=== PATIENT | female | born 1950 | race Caucasian/White ===

== ENCOUNTER 2016-09-26 05:18 | Inpatient (IN) | payer OTHER ==
[2016-09-26] VITALS (7 sets, daily range): BP systolic 121–156; BP diastolic 56–93
[~2016-09-26] VITALS: Ht 162.6 cm; Wt 122.0 kg
[~2016-09-26 05:18] MED LIST: AMBIEN10 MG PO; FLEXERIL5 MG PO; HYZAAR 100-21 TABLET PO; INVOKANA300 MG PO; KLOR-CON M2020 MEQ PO; METOPROLOL SUCC50 MG PO; MOBIC7.5 MG PO; NASONEX17 GM BOTH NARES; NEXIUM40 MG PO; NOVOLOG PE100 UNITS/ SC; TOPROL XL50 MG PO; TRESIBA FL100 UNIT/1 SC; VICODIN 5-3001 EACH PO; VICTOZA 2-0.6 MG/0.1 SC
[2016-09-26 06:13] LABS: POINT-OF-CARE METER ID UU14174212
[2016-09-26 09:29] LABS: POINT-OF-CARE METER ID UU13113675
[2016-09-26 12:37] LABS: POINT-OF-CARE METER ID UU13113712
[2016-09-26 16:37] LABS: POINT-OF-CARE METER ID UU13113712
[2016-09-26 22:27] LABS: POINT-OF-CARE METER ID UU13113712
[2016-09-27 00:24] VITALS: BP 127/55
[2016-09-27 03:53] VITALS: BP 107/54
[2016-09-27 05:56] LABS: ANION GAP 5 MEQ/L (2-14); CHLORIDE 102 MEQ/L (99-109); GFR ESTIMATE (CALCULATED) 48 mL/min/; GLUCOSE 201 mg/dL (70-99); POTASSIUM 4.5 MEQ/L (3.7-5.4); SAMPLE HEMOLYSIS CHECK 0; SAMPLE ICTERIC CHECK 0; SAMPLE LIPEMIA CHECK 0; SODIUM 136 MEQ/L (136-147); UREA NITROGEN (BUN) 28 mg/dL (9-23)
[2016-09-27 07:51] VITALS: BP 123/59
[2016-09-27 10:27] LABS: HEMATOCRIT 32.9 % (36.0-46.0); MCV 92.4 FL (83-99)
[2016-09-27 11:44] LABS: POINT-OF-CARE METER ID UU13113712
[2016-09-27 12:22] VITALS: BP 123/58
[2016-09-27 15:37] VITALS: BP 133/63
[2016-09-27 16:10] LABS: POINT-OF-CARE METER ID UU13113712
[2016-09-27 19:58] VITALS: BP 122/60
[2016-09-27 22:14] LABS: POINT-OF-CARE METER ID UU13113712
[2016-09-28 00:05] VITALS: BP 129/63
[2016-09-28 04:05] VITALS: BP 122/56
[2016-09-28 05:22] LABS: HEMATOCRIT 33.6 % (36.0-46.0); MCV 92.8 FL (83-99)
[2016-09-28 08:00] VITALS: BP 139/63
[2016-09-28 08:00] LABS: POINT-OF-CARE METER ID UU13113712
[2016-09-28] MEDS ORDERED: BENADRYL25 MG PO (09:20)
[2016-09-28] MEDS ORDERED: TYLENOL REGULA325 MG PO (09:22)
[2016-09-28] MEDS ORDERED: SENNA PLUS TAB1 EACH PO (09:22)
[2016-09-28] MEDS ORDERED: XARELTO10 MG PO (09:23)
[2016-09-28] MEDS ORDERED: CYCLOBENZAPRINE5 MG PO (09:23)
[2016-09-28] MEDS ORDERED: OXYCODONE HCL5 MG PO (09:23)
[2016-09-28] MEDS ORDERED: CELECOXIB200 MG PO (09:23)
[2016-09-28 11:33] LABS: POINT-OF-CARE METER ID UU13113712
[2016-09-28 12:00] VITALS: BP 118/69
[2016-09-28 15:08] VITALS: BP 148/63
== END 2016-09-28 15:58 | DRG 470 ==
LOC: 2SOUTH 05:18 → 3WEST 10:10 → 2SOUTH 11:08 → 3WEST 09-28 15:58
PROVIDERS: Orthopaedic Surgery
PROC: 0SRC0J9 Replacement of Right Knee Joint with Synthetic Substitute, Cemented, Open Approach (ICD-10-PCS; principal; 2016-09-26)
DX: M17.11 Unilateral primary osteoarthritis, right knee (principal); I10 Essential (primary) hypertension; E11.9 Type 2 diabetes mellitus without complications; Z86.718 Personal history of other venous thrombosis and embolism; Z85.038 Personal history of other malignant neoplasm of large intestine; Z98.1 Arthrodesis status
CPT/HCPCS: 80048; 82948; 85014; 85018; C1713; J0131; J0690; J1100; J1815; J1885; J2175; J2250; J2405; J2795; J3010; J7030; J7050; J7120; L1820

== ENCOUNTER 2017-06-05 22:03 | Inpatient (IN) | payer OTHER ==
[~2017-06-05] VITALS: Ht 154.9 cm; Wt 56.5 kg
[~2017-06-05 22:03] MED LIST changes: +AMOX TR-K CLV1 EAC4 PO; +BENADRYL25 MG PO; +CELECOXIB200 MG PO; +CYCLOBENZAPRINE5 MG PO; +DITROPAN XL15 MG PO; +FLONASE16 G1 BOTH NARES; +IRON325 M1 PO; +LASIX20 MG PO; +LORCET 5-325 M1 EACH PO; +MAGNESIUM250 MG PO; +OXYCODONE HCL5 MG PO; +SENNA PLUS TAB1 EACH PO; +TYLENOL REGULA325 MG PO; +VITAMIN B-12250 MCG PO; +VITAMIN K240 MCG PO; +XARELTO10 MG PO
[2017-06-06 06:41] VITALS: BP 148/66
[2017-06-06 15:09] VITALS: BP 132/63
[2017-06-06 20:13] VITALS: BP 100/56
[2017-06-06] MEDS ORDERED: VITAMIN K240 MCG PO (22:37)
[2017-06-07 00:21] VITALS: BP 125/61
[2017-06-07 03:25] VITALS: BP 122/58
[2017-06-07 06:03] LABS: HEMOGLOBIN 12.4 G/DL (11.9-15.5); MCV 93.3 FL (83-99)
[2017-06-07 06:18] LABS: CHLORIDE 103 MEQ/L (99-109); POTASSIUM 3.8 MEQ/L (3.7-5.4); SODIUM 138 MEQ/L (136-147)
[2017-06-07 06:24] LABS: GFR ESTIMATE (CALCULATED) 59 mL/min/; GLUCOSE 151 mg/dL (70-99); UREA NITROGEN (BUN) 21 mg/dL (9-23)
[2017-06-07 08:18] VITALS: BP 133/63
[2017-06-07 11:33] VITALS: BP 121/54
[2017-06-07 15:55] VITALS: BP 104/62; BP 1074/62
[2017-06-08 05:18] LABS: HEMATOCRIT 33.8 % (36.0-46.0); HEMOGLOBIN 11.5 G/DL (11.9-15.5); MCV 94.2 FL (83-99)
[2017-06-08 07:47] VITALS: BP 105/53
[2017-06-08] MEDS ORDERED: BENADRYL25 MG PO (09:14)
[2017-06-08] MEDS ORDERED: BISACODYL5 MG PO (09:17)
[2017-06-08] MEDS ORDERED: TYLENOL REGULA325 MG PO (09:17)
[2017-06-08] MEDS ORDERED: OXYCODONE HCL5 MG PO (09:18)
[2017-06-08] MEDS ORDERED: CELECOXIB200 MG PO (09:18)
[2017-06-08] MEDS ORDERED: ELIQUIS2.5 MG PO (09:18)
[2017-06-08 15:09] VITALS: BP 109/57
[2017-06-08 22:54] VITALS: BP 126/61
[2017-06-09 00:11] VITALS: BP 129/60
[2017-06-09 07:51] VITALS: BP 110/56
[2017-06-09 15:10] VITALS: BP 111/56
[2017-06-10 00:06] VITALS: BP 103/57
[2017-06-10 07:58] VITALS: BP 129/59
[2017-06-10 15:25] VITALS: BP 122/59
[2017-06-10 23:36] VITALS: BP 119/57
[2017-06-11 07:53] VITALS: BP 114/61; BP 119/68
[2017-06-11 15:59] VITALS: BP 115/68
[2017-06-11 23:21] VITALS: BP 103/57
[2017-06-12 07:36] VITALS: BP 104/61
[2017-06-12 15:29] VITALS: BP 110/59
[2017-06-12 23:46] VITALS: BP 109/56
[2017-06-13 07:31] VITALS: BP 124/61
[2017-06-13 16:08] VITALS: BP 102/51
== END 2017-06-13 16:42 | DRG 470 ==
LOC: 2SOUTH → ENRESERV 22:03 → 2SOUTH 06-06 05:38 → 3EAST 06-06 05:38 → 2SOUTH 06-06 08:22 → EDSTATUS 06-06 11:37 → 2SOUTH 06-06 11:39 → ENRESERV 06-06 12:44 → 2SOUTH 06-06 13:00 → 3EAST 06-06 14:26 → SDC 06-06 14:31 → 2SOUTH 06-06 14:39 → 3EAST 06-13 16:42
PROVIDERS: Orthopaedic Surgery
PROC: 0SRD0J9 Replacement of Left Knee Joint with Synthetic Substitute, Cemented, Open Approach (ICD-10-PCS; principal; 2017-06-06)
PROC: 3E0T3BZ Introduction of Anesthetic Agent into Peripheral Nerves and Plexi, Percutaneous Approach (ICD-10-PCS; 2017-06-06)
DX: M17.12 Unilateral primary osteoarthritis, left knee (principal); I10 Essential (primary) hypertension; E11.9 Type 2 diabetes mellitus without complications; E66.9 Obesity, unspecified; Z96.651 Presence of right artificial knee joint; Z79.4 Long term (current) use of insulin; Z98.1 Arthrodesis status; Z88.1 Allergy status to other antibiotic agents; Z93.3 Colostomy status; Z85.038 Personal history of other malignant neoplasm of large intestine; Z86.718 Personal history of other venous thrombosis and embolism; Z68.43 Body mass index [BMI] 50.0-59.9, adult; Z75.1 Person awaiting admission to adequate facility elsewhere
CPT/HCPCS: 36415; 71045; 80048; 82565; 82948; 84439; 84443; 84481; 84520; 85014; 85018; 94799; 97530 GO; 97530 GP; C1713; J0131; J0690; J1170; J1815; J1885; J2250; J2405; J3010; J7030; Q0175

== ENCOUNTER 2017-06-28 19:22 | Inpatient (IN) | payer OTHER ==
[~2017-06-28] VITALS: Ht 160 cm; Wt 119.9 kg
[~2017-06-28 19:22] MED LIST changes: +BISACODYL5 MG PO; +ELIQUIS2.5 MG PO
[2017-06-28 20:13] LABS: HEMATOCRIT 29.5 % (36.0-46.0); HEMOGLOBIN 10.2 G/DL (11.9-15.5); MCH 31.9 PG (29.0-34.0); MCHC 34.6 G/DL (30.0-36.0); MCV 92.2 FL (83-99); PLATELET COUNT 293 K/uL (156-360); RBC DIS.WIDTH-CV 12.6 % (11.8-14.6); RBC DIS.WIDTH-SD 42.7 % (39-53); WHITE BLOOD COUNT 6.5 K/uL (4.1-10.2)
[2017-06-28 20:28] LABS: CHLORIDE 85 mEq/L (99-109); POTASSIUM 5.8 mEq/L (3.7-5.4)
[2017-06-28 20:30] LABS: GLUCOSE 139 mg/dL (70-99); TOTAL PROTEIN 6.9 g/dL (6.4-8.3)
[2017-06-28 20:32] LABS: TOTAL BILIRUBIN 0.8 mg/dL (0.0-1.0)
[2017-06-28 20:34] LABS: ALKALINE PHOSPHATASE 130 IU/L (3-129); CREATININE 1.8 mg/dL (0.6-1.3); GFR ESTIMATE (CALCULATED) 30 mL/min/
[2017-06-28 20:35] LABS: UREA NITROGEN (BUN) 34 mg/dL (9-23)
[2017-06-28 20:36] LABS: AST (GOT) 15 IU/L (2-34)
[2017-06-28 20:37] LABS: ALT (GPT) 10 IU/L (3-49); SODIUM 119 mEq/L (136-147)
[2017-06-28 20:49] LABS: APPEARANCE CLEAR ((CLEAR)); BILIRUBIN NEGATIVE; BLOOD NEGATIVE; COLOR YELLOW ((YELLOW)); GLUCOSE (STRIP) NEGATIVE; KETONES NEGATIVE; LEUKOCYTES NEGATIVE; NITRITE NEGATIVE; PROTEIN (STRIP) NEGATIVE; SPECIFIC GRAVITY 1.009 (1.000-1.030); UROBILINOGEN 0.2 MG/DL (0.2-1.0)
[2017-06-28] MEDS ORDERED: VITAMIN B-12250 MCG PO (21:08)
[2017-06-28] MEDS ORDERED: LASIX20 MG PO (21:09)
[2017-06-28] MEDS ORDERED: IRON325 M1 PO (21:09)
[2017-06-28] MEDS ORDERED: HYZAAR 100-21 TABLET PO (21:09)
[2017-06-28] MEDS ORDERED: VICTOZA 2-0.6 MG/0.1 SC (21:11)
[2017-06-28] MEDS ORDERED: MAGNESIUM250 MG PO (21:11)
[2017-06-28] MEDS ORDERED: TRESIBA FL100 UNIT/1 SC (21:12)
[2017-06-28] MEDS ORDERED: TOPROL XL50 MG PO (21:12)
[2017-06-28] MEDS ORDERED: DITROPAN XL15 MG PO (21:12)
[2017-06-28] MEDS ORDERED: AMBIEN10 MG PO (21:13)
[2017-06-28] MEDS ORDERED: ELIQUIS2.5 MG PO (21:13)
[2017-06-28] MEDS ORDERED: NOVOLOG PE100 UNITS/ SC (21:14)
[2017-06-28] MEDS ORDERED: KEFLEX500 MG PO (21:18)
[2017-06-28] MEDS ORDERED: TYLENOL REGULA325 MG PO (21:19)
[2017-06-28] MEDS ORDERED: BENADRYL ALLERG25 MG PO (21:20)
[2017-06-28] MEDS ORDERED: COOL THERAPY118 ML TP (21:21)
[2017-06-28] MEDS ORDERED: FLEXERIL5 MG PO (21:22)
[2017-06-28] MEDS ORDERED: LAXATIVE5 M1 PO (21:22)
[2017-06-28] MEDS ORDERED: DULCOLAX10 MG PR (21:25)
[2017-06-28] MEDS ORDERED: FLONASE16 G1 BOTH NARES (21:26)
[2017-06-28] MEDS ORDERED: MILK OF MAGN PO (21:26)
[2017-06-28] MEDS ORDERED: MIRALAX17 GM PO (21:27)
[2017-06-28] MEDS ORDERED: ROXICODONE5 MG PO (21:28)
[2017-06-28 23:04] VITALS: BP 133/60
[2017-06-29] VITALS (7 sets, daily range): BP systolic 99–132; BP diastolic 53–67
[2017-06-29 06:51] LABS: HEMATOCRIT 27.3 % (36.0-46.0); HEMOGLOBIN 9.2 G/DL (11.9-15.5); MCH 31.5 PG (29.0-34.0); MCHC 33.7 G/DL (30.0-36.0); MCV 93.5 FL (83-99); PLATELET COUNT 281 K/uL (156-360); RBC DIS.WIDTH-CV 12.6 % (11.8-14.6); RBC DIS.WIDTH-SD 43.2 % (39-53); RED BLOOD COUNT 2.92 M/uL (3.80-5.20); WHITE BLOOD COUNT 6.5 K/uL (4.1-10.2)
[2017-06-29 07:16] LABS: CHLORIDE 87 MEQ/L (99-109); CREATININE 1.7 MG/DL (0.6-1.3); GFR ESTIMATE (CALCULATED) 32 mL/min/; SODIUM 123 MEQ/L (136-147); UREA NITROGEN (BUN) 28 mg/dL (9-23)
[2017-06-29 07:17] LABS: GLUCOSE 92 mg/dL (70-99); POTASSIUM 4.5 MEQ/L (3.7-5.4)
[2017-06-29 16:31] LABS: CHLORIDE 88 MEQ/L (99-109); CREATININE 1.5 MG/DL (0.6-1.3); GFR ESTIMATE (CALCULATED) 37 mL/min/; GLUCOSE 100 mg/dL (70-99); POTASSIUM 4.5 MEQ/L (3.7-5.4); SODIUM 122 MEQ/L (136-147); UREA NITROGEN (BUN) 27 mg/dL (9-23)
[2017-06-29 17:47] LABS: URIC ACID 7.5 mg/dL (3.1-9.2)
[2017-06-29 21:11] LABS: CHLORIDE 89 MEQ/L (99-109); POTASSIUM 4.7 MEQ/L (3.7-5.4); SODIUM 122 MEQ/L (136-147)
[2017-06-29 21:30] LABS: CREATININE 1.3 MG/DL (0.6-1.3); GFR ESTIMATE (CALCULATED) 44 mL/min/; UREA NITROGEN (BUN) 25 mg/dL (9-23)
[2017-06-29 21:31] LABS: GLUCOSE 179 mg/dL (70-99)
[2017-06-30 01:07] LABS: TROP-I INTERPRETATION NEGATIVE; TROPONIN-I 0.01 ng/mL (0.0-0.30)
[2017-06-30 04:08] VITALS: BP 131/60
[2017-06-30 06:51] LABS: CHLORIDE 90 MEQ/L (99-109); CREATININE 1.3 MG/DL (0.6-1.3); GFR ESTIMATE (CALCULATED) 44 mL/min/; GLUCOSE 125 mg/dL (70-99); POTASSIUM 4.6 MEQ/L (3.7-5.4); SODIUM 126 MEQ/L (136-147); UREA NITROGEN (BUN) 23 mg/dL (9-23)
[2017-06-30 06:56] LABS: TROP-I INTERPRETATION NEGATIVE; TROPONIN-I < 0.01 ng/mL (0.0-0.30)
[2017-06-30 08:10] VITALS: BP 129/54
[2017-06-30 12:59] LABS: TROP-I INTERPRETATION NEGATIVE; TROPONIN-I 0.01 ng/mL (0.0-0.30)
[2017-06-30 15:25] VITALS: BP 111/56
[2017-06-30 16:14] LABS: CHLORIDE 93 mEq/L (99-109); POTASSIUM 4.7 mEq/L (3.7-5.4); SODIUM 128 mEq/L (136-147)
[2017-06-30 16:16] LABS: GLUCOSE 163 mg/dL (70-99)
[2017-06-30 16:19] LABS: CREATININE 1.2 mg/dL (0.6-1.3); GFR ESTIMATE (CALCULATED) 48 mL/min/
[2017-06-30 16:23] LABS: UREA NITROGEN (BUN) 25 mg/dL (9-23)
[2017-06-30 23:23] VITALS: BP 111/60
[2017-07-01 07:31] LABS: CHLORIDE 92 MEQ/L (99-109); GFR ESTIMATE (CALCULATED) 59 mL/min/; GLUCOSE 143 mg/dL (70-99); POTASSIUM 4.2 MEQ/L (3.7-5.4); SODIUM 130 MEQ/L (136-147); UREA NITROGEN (BUN) 16 mg/dL (9-23)
[2017-07-01 08:00] VITALS: BP 141/63
[2017-07-01] MEDS ORDERED: SODIUM CHLORIDE1 G1 PO (13:23)
[2017-07-01] MEDS ORDERED: PERCOCET 5/31 TABLET PO (16:46)
== END 2017-07-01 16:57 | disposition home health service (06) | DRG 683 ==
LOC: EME 19:22 → EDOF 21:28 → 2EASTP 21:28 → ENRESERV 21:33 → 2EASTP 22:31
PROVIDERS: Emergency Medicine; Hospitalist; Internal Medicine Nephrology
DX: N17.9 Acute kidney failure, unspecified (principal); E86.1 Hypovolemia; E87.1 Hypo-osmolality and hyponatremia; T50.2X5A Adverse effect of carbonic-anhydrase inhibitors, benzothiadiazides and other diuretics, initial encounter; T50.1X5A Adverse effect of loop [high-ceiling] diuretics, initial encounter; E86.0 Dehydration; E87.5 Hyperkalemia; E87.8 Other disorders of electrolyte and fluid balance, not elsewhere classified; Z68.42 Body mass index [BMI] 45.0-49.9, adult; E66.01 Morbid (severe) obesity due to excess calories; I10 Essential (primary) hypertension; E11.9 Type 2 diabetes mellitus without complications; K21.0 Gastro-esophageal reflux disease with esophagitis; E78.5 Hyperlipidemia, unspecified; G43.909 Migraine, unspecified, not intractable, without status migrainosus; M19.90 Unspecified osteoarthritis, unspecified site; M62.830 Muscle spasm of back; D64.9 Anemia, unspecified; Z93.3 Colostomy status; Z85.048 Personal history of other malignant neoplasm of rectum, rectosigmoid junction, and anus; Z86.718 Personal history of other venous thrombosis and embolism; Z96.653 Presence of artificial knee joint, bilateral
CPT/HCPCS: 71045; 80048; 80048 91; 80053; 81003; 82948; 83930; 83935; 84300; 84484; 84550; 85027; 85379; 87641; 99281; 99285; J1815; J2405; J7030

== ENCOUNTER 2017-12-09 13:09 | Inpatient (IN) | payer OTHER ==
[~2017-12-09] VITALS: Ht 160 cm; Wt 121.8 kg
[~2017-12-09 13:09] MED LIST changes: +BENADRYL ALLERG25 MG PO; +COOL THERAPY118 ML TP; +DULCOLAX10 MG PR; +KEFLEX500 MG PO; +LAXATIVE5 M1 PO; +MILK OF MAGN PO; +MIRALAX17 GM PO; +PERCOCET 5/31 TABLET PO; +ROXICODONE5 MG PO; +SODIUM CHLORIDE1 G1 PO; +TOPROL XL25 MG PO
[2017-12-09 13:43] LABS: HEMATOCRIT 35.4 % (36.0-46.0); HEMOGLOBIN 11.7 G/DL (11.9-15.5); MCHC 33.1 G/DL (30.0-36.0); MCV 93.9 FL (83-99); PLATELET COUNT 271 K/uL (156-360); RBC DIS.WIDTH-CV 13.2 % (11.8-14.6); RBC DIS.WIDTH-SD 45.1 % (39-53); RED BLOOD COUNT 3.77 M/uL (3.80-5.20); WHITE BLOOD COUNT 9.9 K/uL (4.1-10.2)
[2017-12-09 13:53] LABS: ALBUMIN 3.6 g/dL (3.2-4.8); CHLORIDE 104 mEq/L (99-109); POTASSIUM 4.4 mEq/L (3.7-5.4); SODIUM 139 mEq/L (136-147)
[2017-12-09 13:55] LABS: GLUCOSE 72 mg/dL (70-99)
[2017-12-09 13:56] LABS: TOTAL PROTEIN 7.5 g/dL (6.4-8.3)
[2017-12-09 13:57] LABS: TOTAL BILIRUBIN 0.5 mg/dL (0.0-1.0)
[2017-12-09 13:59] LABS: ALKALINE PHOSPHATASE 89 IU/L (3-129); CREATININE 1.3 mg/dL (0.6-1.3); GFR ESTIMATE (CALCULATED) 43 mL/min/
[2017-12-09 14:00] LABS: UREA NITROGEN (BUN) 22 mg/dL (9-23)
[2017-12-09 14:01] LABS: AST (GOT) 21 IU/L (2-34)
[2017-12-09 14:02] LABS: ALT (GPT) 18 IU/L (3-49)
[2017-12-09] MEDS ORDERED: MAGNESIUM250 MG PO (20:44)
[2017-12-09] MEDS ORDERED: NOVOLOG PE100 UNITS/ SC ×2 (20:46)
[2017-12-09] MEDS ORDERED: HYDROCODON-ACE1 EAC7 PO (20:47)
[2017-12-09] MEDS ORDERED: BACTRIM,SEPT1 TABLET PO (20:47)
[2017-12-09] MEDS ORDERED: COZAAR100 MG PO (20:48)
[2017-12-09] MEDS ORDERED: AUGMENTIN875 MG PO (20:48)
[2017-12-09] MEDS ORDERED: K-DUR20 MEQ PO (20:48)
[2017-12-09] MEDS ORDERED: DIFLUCAN150 MG PO (20:48)
[2017-12-09] MEDS ORDERED: VENTOLIN HFA18 GM IH (20:48)
[2017-12-09 21:10] LABS: APPEARANCE CLEAR ((CLEAR)); BILIRUBIN NEGATIVE; BLOOD NEGATIVE; COLOR YELLOW ((YELLOW)); GLUCOSE (STRIP) NEGATIVE; KETONES NEGATIVE; LEUKOCYTES NEGATIVE; NITRITE NEGATIVE; PROTEIN (STRIP) NEGATIVE; SPECIFIC GRAVITY 1.028 (1.000-1.030); UCUL ADDED? NO; UROBILINOGEN 0.2 MG/DL (0.2-1.0)
[2017-12-09 22:24] VITALS: BP 139/61
[2017-12-10 03:44] VITALS: BP 140/60
[2017-12-10 06:38] LABS: HEMATOCRIT 33.7 % (36.0-46.0); HEMOGLOBIN 10.7 G/DL (11.9-15.5); MCH 30.1 PG (29.0-34.0); MCHC 31.8 G/DL (30.0-36.0); MCV 94.9 FL (83-99); PLATELET COUNT 237 K/uL (156-360); RBC DIS.WIDTH-CV 13.3 % (11.8-14.6); RBC DIS.WIDTH-SD 45.6 % (39-53); RED BLOOD COUNT 3.55 M/uL (3.80-5.20)
[2017-12-10 07:00] LABS: ALBUMIN 3.2 G/DL (3.2-4.8); ALKALINE PHOSPHATASE 78 IU/L (3-129); ALT (GPT) 13 IU/L (3-49); AST (GOT) 17 IU/L (2-34); CHLORIDE 103 MEQ/L (99-109); CREATININE 1.2 MG/DL (0.6-1.3); GFR ESTIMATE (CALCULATED) 48 mL/min/; POTASSIUM 4.7 MEQ/L (3.7-5.4); SODIUM 138 MEQ/L (136-147); TOTAL BILIRUBIN 0.5 MG/DL (0.0-1.0); TOTAL PROTEIN 6.5 G/DL (6.4-8.3); UREA NITROGEN (BUN) 20 mg/dL (9-23)
[2017-12-10 07:12] LABS: GLUCOSE 92 mg/dL (70-99)
[2017-12-10 07:15] VITALS: BP 130/57
[2017-12-10] MEDS ORDERED: CIPRO500 MG PO (11:57)
[2017-12-10 11:58] VITALS: BP 110/52
[2017-12-10] MEDS ORDERED: FLAGYL500 MG PO (11:58)
[2017-12-10] MEDS ORDERED: HYDROCODON-ACE1 EAC7 PO (11:58)
[2017-12-10 16:37] VITALS: BP 103/57
== END 2017-12-10 18:12 | disposition home or self-care (01) | DRG 394 ==
LOC: EME 13:09 → EDOF 20:44 → ENRESERV 20:48 → 5EAST 22:01
PROVIDERS: Internal Medicine
DX: K94.09 Other complications of colostomy (principal); K63.2 Fistula of intestine; L03.90 Cellulitis, unspecified; E66.01 Morbid (severe) obesity due to excess calories; I10 Essential (primary) hypertension; E11.21 Type 2 diabetes mellitus with diabetic nephropathy; K21.9 Gastro-esophageal reflux disease without esophagitis; Z96.653 Presence of artificial knee joint, bilateral; G43.909 Migraine, unspecified, not intractable, without status migrainosus; J40 Bronchitis, not specified as acute or chronic; E53.8 Deficiency of other specified B group vitamins; J45.909 Unspecified asthma, uncomplicated; E05.00 Thyrotoxicosis with diffuse goiter without thyrotoxic crisis or storm; E78.5 Hyperlipidemia, unspecified; Y83.3 Surgical operation with formation of external stoma as the cause of abnormal reaction of the patient, or of later complication, without mention of misadventure at the time of the procedure; Z79.4 Long term (current) use of insulin; Z90.710 Acquired absence of both cervix and uterus; Z90.49 Acquired absence of other specified parts of digestive tract; Z85.048 Personal history of other malignant neoplasm of rectum, rectosigmoid junction, and anus; Y92.89 Other specified places as the place of occurrence of the external cause
CPT/HCPCS: 74177; 80053; 81003; 82948; 83605; 85027; 86850; 86900; 86901; 87040; 99281; 99285; J1815; J3370; J7030

== ENCOUNTER → 2018-01-03 | Outpatient (CLI) | payer OTHER ==
[~2018-01-03] VITALS: Ht 160 cm; Wt 119.3 kg
[~2018-01-03] MED LIST changes: +AUGMENTIN875 MG PO; +BACTRIM,SEPT1 TABLET PO; +CIPRO500 MG PO; +COZAAR100 MG PO; +DIFLUCAN150 MG PO; +FLAGYL500 MG PO; +HYDROCODON-ACE1 EAC7 PO; +K-DUR20 MEQ PO; +VENTOLIN HFA18 GM IH; +ZYRTEC10 M3 PO
== END | disposition home or self-care (01) ==
LOC: AMB 11:00
PROVIDERS: Internal Medicine Gastroenterology
PROC: 0DBE8ZX Excision of Large Intestine, Via Natural or Artificial Opening Endoscopic, Diagnostic (ICD-10-PCS; principal; 2018-01-03)
DX: K94.09 Other complications of colostomy (principal); K94.03 Colostomy malfunction; Y83.3 Surgical operation with formation of external stoma as the cause of abnormal reaction of the patient, or of later complication, without mention of misadventure at the time of the procedure; I10 Essential (primary) hypertension; E11.9 Type 2 diabetes mellitus without complications; G47.30 Sleep apnea, unspecified; E03.9 Hypothyroidism, unspecified; Z79.4 Long term (current) use of insulin; Z88.1 Allergy status to other antibiotic agents; Z91.040 Latex allergy status; Z85.048 Personal history of other malignant neoplasm of rectum, rectosigmoid junction, and anus
CPT/HCPCS: 82948; 88305; 93005